=== PATIENT | female | born 1960 | race Hispanic/Latino ===

== ENCOUNTER 2018-09-04 13:10 | Observation (INO) | payer OTHER ==
[~2018-09-04] VITALS: Ht 162.6 cm; Wt 86.1 kg
[2018-09-04 13:45] LABS: BASOPHILS % (AUTO) 0.8 % (0.0-5.0); CREATININE 0.6 mg/dL (0.5-1.5); EOSINOPHILS % (AUTO) 1.2 % (0.0-8.0); HEMATOCRIT 42.1 % (36-48); LYMPHOCYTES % (AUTO) 27.3 % (21.0-51.0); MEAN CORPUSCULAR HEMOGLOBIN 29.1 pg (27.0-33.0); MEAN CORPUSCULAR HGB CONC 33.6 g/dL (32.0-36.0); MEAN CORPUSCULAR VOLUME 86.8 fL (79-99); NEUTROPHILS % (AUTO) 66.7 % (40.0-77.0); PLATELET COUNT (AUTO) 230 K/uL (130-400); POTASSIUM 3.7 mmol/L (3.5-5.1); RED BLOOD CELL COUNT(AUTO) 4.85 MIL/uL (4.00-5.50); RED CELL DISTRIBUTION WIDTH 14.7 % (11.0-15.5)
[2018-09-04] MEDS ORDERED: ASPIRIN 325 MG TABLET ONE (13:49)
[2018-09-04 13:50] LABS: ALBUMIN 3.8 g/dL (3.5-5.0); TOTAL PROTEIN, SERUM 7.9 g/dL (6.0-8.3)
[2018-09-04 13:57] LABS: CREATINE KINASE, TOTAL 62 U/L (21-232); MYOGLOBIN 22 ng/mL (10-92); TROPONIN I < 0.04 ng/mL (0.00-0.06)
[2018-09-04] MEDS ORDERED: ONDANSETRON HCL 4 MG/2 ML VIAL IV PRN (16:00)
[2018-09-04] MEDS ORDERED: HYDRALAZINE HCL 20 MG/ML VIAL IV PRN (16:00)
[2018-09-04] MEDS ORDERED: ZOLPIDEM TARTRATE 5 MG TAB PO PRN (16:00)
[2018-09-04] MEDS ORDERED: MORPHINE SULFATE 2 MG/ML 1ML SYG IV PRN (16:00)
[2018-09-04] MEDS ORDERED: MAG HYDROX/AL HYDROX/SIMETH ES 30 ML SUSP UDCUP PO PRN (16:00)
[2018-09-04 17:23] VITALS: BP 160/80
[2018-09-04] MEDS ORDERED: LEVOFLOXACIN 500 MG/D5W 100 ML 100 ML IV SCH (17:30)
[2018-09-04] MEDS ORDERED: ACETAMINOPHEN 325 MG TAB ONE (18:44)
[2018-09-04] MEDS ORDERED: PANTOPRAZOLE SODIUM 40 MG TABLET.DR PO ONE (18:44)
[2018-09-04] MEDS: SODIUM CHLORIDE 0.9% 1000ML 1,000 ML IV SCH (18:45)
[2018-09-04] MEDS: NITROGLYCERIN 1GM/1 INCH PACKET TD SCH (18:59)
[2018-09-04 19:45] VITALS: BP 131/75
[2018-09-04 20:12] LABS: CREATINE KINASE, TOTAL 47 U/L (21-232); MYOGLOBIN 25 ng/mL (10-92); TROPONIN I < 0.04 ng/mL (0.00-0.06)
[2018-09-04 20:42] LABS: HEMOGLOBIN A1C 7.1 % (4.0-6.0)
[2018-09-04] MEDS ORDERED: LISI-613 PO (20:51)
[2018-09-04] MEDS ORDERED: METF500S7 PO (20:51)
[2018-09-04] MEDS ORDERED: AMLO5TAB7 PO (20:51)
[2018-09-04] MEDS ORDERED: ALBU90AE IH (20:51)
[2018-09-04] MEDS ORDERED: ATOR-2 PO (20:51)
[2018-09-04] MEDS: METOPROLOL TARTRATE 25 MG TAB PO SCH (21:55)
[2018-09-04 23:47] VITALS: BP 114/74
[2018-09-05 00:22] LABS: CREATINE KINASE, TOTAL 43 U/L (21-232); MYOGLOBIN 24 ng/mL (10-92); TROPONIN I < 0.04 ng/mL (0.00-0.06)
[2018-09-05 03:49] VITALS: BP 125/71
[2018-09-05 06:16] LABS: BASOPHILS % (AUTO) 0.6 % (0.0-5.0); EOSINOPHILS % (AUTO) 2.6 % (0.0-8.0); HEMATOCRIT 40.6 % (36-48); LYMPHOCYTES % (AUTO) 32.7 % (21.0-51.0); MEAN CORPUSCULAR HEMOGLOBIN 29.3 pg (27.0-33.0); MEAN CORPUSCULAR HGB CONC 33.5 g/dL (32.0-36.0); MEAN CORPUSCULAR VOLUME 87.6 fL (79-99); MONOCYTES % (AUTO) 6.7 % (3.0-13.0); NEUTROPHILS % (AUTO) 57.4 % (40.0-77.0); PLATELET COUNT (AUTO) 246 K/uL (130-400); RED BLOOD CELL COUNT(AUTO) 4.63 MIL/uL (4.00-5.50); RED CELL DISTRIBUTION WIDTH 14.4 % (11.0-15.5)
[2018-09-05] MEDS: SODIUM CHLORIDE 0.9% 1000ML 1,000 ML IV SCH ×2 (06:38→07:55)
[2018-09-05 06:44] LABS: ALBUMIN 3.2 g/dL (3.5-5.0); BILIRUBIN,TOTAL 0.9 mg/dL (0.2-1.0); CREATININE 0.7 mg/dL (0.5-1.5); POTASSIUM 4.3 mmol/L (3.5-5.1); TOTAL PROTEIN, SERUM 6.8 g/dL (6.0-8.3)
[2018-09-05 06:50] LABS: CREATINE KINASE, TOTAL 45 U/L (21-232); MYOGLOBIN 26 ng/mL (10-92); TROPONIN I < 0.04 ng/mL (0.00-0.06)
[2018-09-05 07:00] VITALS: BP 142/78
[2018-09-05] MEDS: METOPROLOL TARTRATE 25 MG TAB PO SCH (08:01)
[2018-09-05] MEDS: NITROGLYCERIN 1GM/1 INCH PACKET TD SCH ×3 (08:01→15:44)
[2018-09-05] MEDS ORDERED: ENOXAPARIN SODIUM 40 MG/0.4 ML SYRINGE SQ SCH (09:00)
[2018-09-05] MEDS ORDERED: PANTOPRAZOLE 40 MG/VIAL IVP SCH (09:00)
[2018-09-05 11:00] VITALS: BP 144/75
[2018-09-05 16:00] VITALS: BP 141/84
[2018-09-05] MEDS ORDERED: LEVOFLOXACIN 500 MG/D5W 100 ML 100 ML IV SCH (23:00)
== END 2018-09-05 18:38 | disposition home or self-care (01) ==
LOC: EDH 13:10 → EDHIP 15:43 → INTOOBSV 15:43 → 2AH 17:17
PROVIDERS: ADMIT Internal Medicine; ATTEND Internal Medicine
DX: R07.89 Other chest pain (principal); K21.9 Gastro-esophageal reflux disease without esophagitis; I10 Essential (primary) hypertension; E11.9 Type 2 diabetes mellitus without complications; E78.2 Mixed hyperlipidemia; D72.829 Elevated white blood cell count, unspecified; E66.9 Obesity, unspecified; Z90.49 Acquired absence of other specified parts of digestive tract; Z90.710 Acquired absence of both cervix and uterus; Z68.30 Body mass index [BMI] 30.0-30.9, adult
CPT/HCPCS: 36415 ×2; 71045; 80053 ×2; 80061; 82550 ×4; 82948 ×4; 83036; 83874 ×4; 84484 ×4; 85025 ×2; 93005; 93306; 96365; 96372; 99285; C9113; G0378 ×27; J1650; J1956; J7030 ×2

== ENCOUNTER → 2019-11-10 | Outpatient (CLI) | payer OTHER ==
[~2019-11-10] MED LIST: ALBU90AE IH; ALBUTEROL SULFATE 0.083% 2.5 MG/3 ML INH IH ONE; AMLO5TAB9 PO; ATOR-2 PO; LISI-613 PO; METF500S7 PO
== END | disposition home or self-care (01) ==
LOC: RESP 13:18
PROVIDERS: ATTEND Orthopaedic Surgery
DX: J44.9 Chronic obstructive pulmonary disease, unspecified (principal); R06.02 Shortness of breath
CPT/HCPCS: 71046; 94060; 94727; 94729

== ENCOUNTER 2020-05-22 00:09 | Inpatient (IN) | payer OTHER ==
[~2020-05-22] VITALS: Ht 162.6 cm; Wt 82.3 kg
[~2020-05-22 00:09] MED LIST changes: -ALBUTEROL SULFATE 0.083% 2.5 MG/3 ML INH IH ONE
[2020-05-22 00:38] LABS: BASOPHILS % (AUTO) 0.6 % (0.0-5.0); EOSINOPHILS % (AUTO) 0.1 % (0.0-8.0); HEMATOCRIT 41.9 % (36-48); LYMPHOCYTES % (AUTO) 23.9 % (21.0-51.0); MEAN CORPUSCULAR HGB CONC 33.7 g/dL (32.0-36.0); MEAN CORPUSCULAR VOLUME 83.1 fL (79-99); MONOCYTES % (AUTO) 8.9 % (3.0-13.0); NEUTROPHILS % (AUTO) 62.4 % (40.0-77.0); PLATELET COUNT (AUTO) 511 K/uL (130-400); RED BLOOD CELL COUNT(AUTO) 5.04 MIL/uL (4.00-5.50); RED CELL DISTRIBUTION WIDTH 13.7 % (11.0-15.5); WHITE BLOOD COUNT (AUTO) 7.1 K/uL (4.8-10.8)
[2020-05-22 00:48] LABS: CREATININE 0.7 mg/dL (0.5-1.5); POTASSIUM 4.1 mmol/L (3.5-5.1)
[2020-05-22 00:53] LABS: ALBUMIN 2.7 g/dL (3.5-5.0); BILIRUBIN,TOTAL 0.6 mg/dL (0.2-1.0); TOTAL PROTEIN, SERUM 7.7 g/dL (6.0-8.3)
[2020-05-22 00:59] LABS: INR 0.92 (0.85-1.15); PARTIAL THROMBOPLASTIN TIME 29.7 SEC (26.3-35.5)
[2020-05-22] MEDS ORDERED: CEFTRIAXONE SODIUM 1 GM ONE (04:51)
[2020-05-22] MEDS ORDERED: AZITHROMYCIN 500MG+NS 250ML 250 ML IV ONE (04:59)
[2020-05-22] MEDS ORDERED: DEXTROSE 50%-WATER 50 ML DISP.SYRIN IV PRN (05:45)
[2020-05-22] MEDS ORDERED: GLUCAGON 1MG KIT 1 MG ML IM PRN (05:45)
[2020-05-22] MEDS ORDERED: ACETAMINOPHEN 325 MG TAB PO PRN ×2 (05:45)
[2020-05-22] MEDS ORDERED: ONDANSETRON HCL 4 MG/2 ML VIAL IV PRN (05:45)
[2020-05-22] MEDS ORDERED: DIPHENHYDRAMINE HCL 25 MG CAPSULE PO PRN (05:45)
[2020-05-22] MEDS ORDERED: NITROGLYCERIN 0.4 MG SL TAB SL PRN (05:45)
[2020-05-22] MEDS ORDERED: ALBUTEROL INHALER 90MCG/INH IH PRN (06:15)
[2020-05-22 06:19] LABS: LACTATE DEHYDROGENASE 543 U/L (81-234); TRIGLYCERIDES 156 mg/dL (30-200)
[2020-05-22 06:23] LABS: HEMOGLOBIN A1C 8.1 % (4.0-6.0)
[2020-05-22] MEDS ORDERED: IOHEXOL-350 75 ML VIAL IV ONE (06:56)
[2020-05-22] MEDS: PANTOPRAZOLE SODIUM 40 MG TABLET.DR PO SCH (09:00)
[2020-05-22] MEDS ORDERED: ENOXAPARIN SODIUM 60 MG/0.6 ML SQ ONE (09:00)
[2020-05-22] MEDS ORDERED: DEXAMETHASONE 4 MG TAB PO SCH (09:00)
[2020-05-22] MEDS: INSULIN HUMULIN R 100 UNIT/ML 3ML SQ SCH ×4 (09:00→21:00)
[2020-05-22] MEDS ORDERED: ENOXAPARIN SODIUM 30 MG/0.3 ML SQ ONE (09:00)
[2020-05-22] MEDS ORDERED: PANTOPRAZOLE SODIUM 40 MG TABLET.DR ONE (09:01)
[2020-05-22] MEDS ORDERED: DEXAMETHASONE 4 MG TAB ONE (10:36)
--- NOTE | 2020-05-22 12:27 | NUR ---
DCP: HOME SW unable to speak to pt who is in ER covmd unit. SW spoke to daughter Radhika Hidalgo [phone]. Daughter reports that pt's son James Willis lives with the pt. 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 Pt is independent of ADLS, no DME or in home care services. Pt is seen at [employer] for medical care and medicines. Plan is home at mt Addendum: 05/22/20 at 1239 by RODO ACEVES Amended: Links added.
[2020-05-22] MEDS ORDERED: INSULIN HUMULIN R 100 UNIT/ML 3ML ONE (17:54)
[2020-05-22] MEDS: ENOXAPARIN SODIUM 80 MG/0.8 ML SQ SCH (21:00)
[2020-05-23] MEDS ORDERED: ENOXAPARIN SODIUM 100 MG/1 ML SQ ONE (02:33)
[2020-05-23] MEDS: INSULIN HUMULIN R 100 UNIT/ML 3ML SQ SCH ×4 (07:30→21:00)
[2020-05-23 07:41] LABS: HEMATOCRIT 40.2 % (36-48); MEAN CORPUSCULAR HEMOGLOBIN 28.4 pg (27.0-33.0); MEAN CORPUSCULAR HGB CONC 33.8 g/dL (32.0-36.0); MEAN CORPUSCULAR VOLUME 83.9 fL (79-99); PLATELET COUNT (AUTO) 580 K/uL (130-400); RED BLOOD CELL COUNT(AUTO) 4.79 MIL/uL (4.00-5.50); RED CELL DISTRIBUTION WIDTH 13.3 % (11.0-15.5); WHITE BLOOD COUNT (AUTO) 6.4 K/uL (4.8-10.8)
[2020-05-23] MEDS ORDERED: CEFTRIAXONE SODIUM 1 GM ONE (08:05)
[2020-05-23] MEDS ORDERED: DEXAMETHASONE 4 MG TAB ONE (08:05)
[2020-05-23] MEDS ORDERED: PANTOPRAZOLE SODIUM 40 MG TABLET.DR ONE (08:06)
[2020-05-23 08:19] LABS: ALBUMIN 2.5 g/dL (3.5-5.0); BILIRUBIN,TOTAL 0.5 mg/dL (0.2-1.0); CREATININE 0.7 mg/dL (0.5-1.5); CRP QUANTITATIVE 84.4 mg/L (0.00-9.0); MAGNESIUM 2.1 mg/dL (1.80-2.40); POTASSIUM 4.2 mmol/L (3.5-5.1)
[2020-05-23 08:27] LABS: LYMPHOCYTES % (MANUAL) 15 % (22-44); MAN.DIFF COMMENT-IMPRESSION MANUAL DIF; MONOCYTES % (MANUAL) 12 % (2-9); PLATELET MORPHOLOGY COMMENT INCREASED; SEGMENTED NEUTROPHILS % 73 % (40-70)
[2020-05-23] MEDS: PANTOPRAZOLE SODIUM 40 MG TABLET.DR PO SCH (09:00)
[2020-05-23] MEDS: CEFTRIAXONE SODIUM 1 GM IVP SCH (09:00)
[2020-05-23] MEDS: ENOXAPARIN SODIUM 80 MG/0.8 ML SQ SCH ×2 (09:00→21:00)
[2020-05-23] MEDS: AZITHROMYCIN 500MG+NS 250ML 250 ML IV SCH (09:08)
[2020-05-23] MEDS ORDERED: AZITHROMYCIN 500MG+NS 250ML 250 ML IV ONE (11:20)
[2020-05-23] MEDS ORDERED: METHYLPREDNISOLONE SOD SUCC 40MG/ML 1ML IVP SCH (16:45)
[2020-05-24] MEDS: INSULIN HUMULIN R 100 UNIT/ML 3ML SQ SCH ×4 (07:30→21:00)
[2020-05-24] MEDS ORDERED: PANTOPRAZOLE SODIUM 40 MG TABLET.DR ONE (07:41)
[2020-05-24] MEDS ORDERED: CEFTRIAXONE SODIUM 1 GM ONE (07:41)
[2020-05-24] MEDS: CEFTRIAXONE SODIUM 1 GM IVP SCH (09:00)
[2020-05-24] MEDS: AZITHROMYCIN 500MG+NS 250ML 250 ML IV SCH (09:00)
[2020-05-24] MEDS: ENOXAPARIN SODIUM 80 MG/0.8 ML SQ SCH ×2 (09:00→09:11)
[2020-05-24] MEDS: PANTOPRAZOLE SODIUM 40 MG TABLET.DR PO SCH (09:00)
[2020-05-24 10:04] LABS: BASOPHILS % (AUTO) 0.7 % (0.0-5.0); EOSINOPHILS % (AUTO) 1.2 % (0.0-8.0); HEMATOCRIT 39.8 % (36-48); LYMPHOCYTES % (AUTO) 16.9 % (21.0-51.0); MEAN CORPUSCULAR HEMOGLOBIN 28.1 pg (27.0-33.0); MEAN CORPUSCULAR HGB CONC 33.7 g/dL (32.0-36.0); MEAN CORPUSCULAR VOLUME 83.4 fL (79-99); MONOCYTES % (AUTO) 9.8 % (3.0-13.0); NEUTROPHILS % (AUTO) 62.7 % (40.0-77.0); RED BLOOD CELL COUNT(AUTO) 4.77 MIL/uL (4.00-5.50); RED CELL DISTRIBUTION WIDTH 13.4 % (11.0-15.5); WHITE BLOOD COUNT (AUTO) 11.2 K/uL (4.8-10.8)
[2020-05-24] MEDS ORDERED: METHYLPREDNISOLONE SOD SUCC 40MG/ML 1ML ONE ×2 (10:18→15:32)
[2020-05-24 10:20] LABS: PLATELET COUNT (AUTO) 707 K/uL (130-400)
[2020-05-24 10:23] LABS: CREATININE 0.6 mg/dL (0.5-1.5); CRP QUANTITATIVE 39.1 mg/L (0.00-9.0); POTASSIUM 3.9 mmol/L (3.5-5.1)
--- NOTE | 2020-05-24 10:45 | NUR ---
DISPO EXPECTED TO BE TO HOME WHEN RESPONDS TO TREATMENT CM WAITING FOR RECOMMENDATIONS, WEANING O2 AT THIS TIME Addendum: 05/24/20 at 1053 by JUAN FRANCISCO PURVIS RN CM Amended: Links added.
[2020-05-25] MEDS ORDERED: METHYLPREDNISOLONE SOD SUCC 40MG/ML 1ML ONE ×3 (01:25→20:26)
[2020-05-25] MEDS ORDERED: ENOXAPARIN SODIUM 100 MG/1 ML SQ ONE ×2 (04:02→18:10)
[2020-05-25 05:18] LABS: HEMATOCRIT 39.3 % (36-48); MEAN CORPUSCULAR HEMOGLOBIN 28.6 pg (27.0-33.0); MEAN CORPUSCULAR HGB CONC 34.1 g/dL (32.0-36.0); MEAN CORPUSCULAR VOLUME 83.8 fL (79-99); PLATELET COUNT (AUTO) 642 K/uL (130-400); RED BLOOD CELL COUNT(AUTO) 4.69 MIL/uL (4.00-5.50); RED CELL DISTRIBUTION WIDTH 13.5 % (11.0-15.5); WHITE BLOOD COUNT (AUTO) 10.2 K/uL (4.8-10.8)
[2020-05-25 05:34] LABS: CREATININE 0.6 mg/dL (0.5-1.5); CRP QUANTITATIVE 25.6 mg/L (0.00-9.0); POTASSIUM 4.2 mmol/L (3.5-5.1)
[2020-05-25] MEDS: INSULIN HUMULIN R 100 UNIT/ML 3ML SQ SCH ×4 (07:30→21:00)
[2020-05-25] MEDS ORDERED: INSULIN HUMULIN R 100 UNIT/ML 3ML ONE ×3 (08:24→18:12)
[2020-05-25 08:32] LABS: BAND NEUTROPHILS % (MANUAL) 6 % (0-2); EOSINOPHILS % (MANUAL) 1 % (1-6); LYMPHOCYTES % (MANUAL) 13 % (22-44); MAN.DIFF COMMENT-IMPRESSION MANUAL DIFFERENTIAL; MONOCYTES % (MANUAL) 9 % (2-9); PLATELET MORPHOLOGY COMMENT INCREASED; SEGMENTED NEUTROPHILS % 71 % (40-70)
[2020-05-25] MEDS ORDERED: AZITHROMYCIN 500MG+NS 250ML 250 ML IV ONE (08:46)
[2020-05-25] MEDS ORDERED: CEFTRIAXONE SODIUM 1 GM ONE (08:47)
[2020-05-25] MEDS ORDERED: SODIUM CHLORIDE 0.9% 100 ML IV ONE (08:49)
[2020-05-25] MEDS: ENOXAPARIN SODIUM 80 MG/0.8 ML SQ SCH ×2 (09:00→21:00)
[2020-05-25] MEDS: AZITHROMYCIN 500MG+NS 250ML 250 ML IV SCH (09:00)
[2020-05-25] MEDS: CEFTRIAXONE SODIUM 1 GM IVP SCH (09:00)
[2020-05-25] MEDS: PANTOPRAZOLE SODIUM 40 MG TABLET.DR PO SCH (09:00)
[2020-05-25] MEDS ORDERED: PANTOPRAZOLE SODIUM 40 MG TABLET.DR ONE (18:11)
[2020-05-25] MEDS ORDERED: METHYLPREDNISOLONE SOD SUCC 125MG/2ML VIAL ONE (18:11)
[2020-05-25] MEDS: METHYLPREDNISOLONE SOD SUCC 40MG/ML 1ML IVP SCH (21:00)
[2020-05-25 22:40] VITALS: BP 133/80
[2020-05-26] MEDS ORDERED: LISI10TA7 PO (00:12)
[2020-05-26] MEDS ORDERED: AMLO10TA7 PO (00:12)
[2020-05-26 04:00] VITALS: BP 135/80
--- NOTE | 2020-05-26 05:23 | NUR ---
PATIENT ARRIVED TO UNIT AT 2330. AOX4,PLEASANT, AND AMBULATORY. UNIT AND ROOM ORIENTATION GIVEN AND PATIENT EXPRESSED UNDERSTANDING. PT HAS NO COMPLAINTS OF PAIN OR DISCOMFORT AND HAS NO CONCERNS OR COMPLAINTS. PT IS LAYING IN BED COMFORTABLY. HOME MEDICATION REVIEWED WITH PATIENT AND ADMISSION TASKS COMPLETED. CALL LIGHT WITHIN REACH. WILL CONTINUE TO MONITOR
[2020-05-26 05:29] LABS: BASOPHILS % (AUTO) 0.7 % (0.0-5.0); MEAN CORPUSCULAR HEMOGLOBIN 28.5 pg (27.0-33.0); MEAN CORPUSCULAR VOLUME 83.9 fL (79-99); MONOCYTES % (AUTO) 6.4 % (3.0-13.0); NEUTROPHILS % (AUTO) 69.7 % (40.0-77.0); RED BLOOD CELL COUNT(AUTO) 4.77 MIL/uL (4.00-5.50); RED CELL DISTRIBUTION WIDTH 13.2 % (11.0-15.5); WHITE BLOOD COUNT (AUTO) 13.7 K/uL (4.8-10.8)
[2020-05-26 05:45] LABS: CREATININE 0.7 mg/dL (0.5-1.5); CRP QUANTITATIVE 16.6 mg/L (0.00-9.0); POTASSIUM 4.2 mmol/L (3.5-5.1)
[2020-05-26 07:01] LABS: PLATELET COUNT (AUTO) 742 K/uL (130-400)
[2020-05-26] MEDS: INSULIN HUMULIN R 100 UNIT/ML 3ML SQ SCH ×5 (07:30→20:34)
[2020-05-26 08:30] VITALS: BP 130/84
[2020-05-26] MEDS ORDERED: INSULIN GLARGINE 100 UNITS/ML 10 ML VIAL SQ ONE (09:00)
[2020-05-26] MEDS: METHYLPREDNISOLONE SOD SUCC 40MG/ML 1ML IVP SCH (09:04)
[2020-05-26] MEDS: AZITHROMYCIN 500MG+NS 250ML 250 ML IV SCH (09:15)
[2020-05-26] MEDS: PANTOPRAZOLE SODIUM 40 MG TABLET.DR PO SCH (09:15)
[2020-05-26] MEDS: CEFTRIAXONE SODIUM 1 GM IVP SCH (09:15)
[2020-05-26] MEDS: ENOXAPARIN SODIUM 80 MG/0.8 ML SQ SCH (09:19)
[2020-05-26 11:15] VITALS: BP 146/89
[2020-05-26] MEDS ORDERED: DEXAMETHASONE SOD PHOSPHATE 4 MG/ML 1ML VIAL IM SCH (14:00)
[2020-05-26 15:30] VITALS: BP 148/93
[2020-05-26] MEDS ORDERED: SODIUM CHLORIDE 0.9% 500ML 500 ML IV ONE (16:08)
[2020-05-26] MEDS ORDERED: SODIUM CHLORIDE 0.9% 0 ML IV ONE (16:08)
--- NOTE | 2020-05-26 16:41 | NUR ---
Pt does not have blood band although type and cross was drawn yesterday. When asked pt if she had the green band pt states "I had it, but I dont know what happened to it." Lab is here at bedside to redraw. Will give FFP after new blood band.
[2020-05-26] MEDS ORDERED: DEXAMETHASONE SOD PHOSPHATE 4 MG/ML 1ML VIAL IV SCH (17:00)
[2020-05-26 19:00] VITALS: BP 155/90
--- NOTE | 2020-05-26 21:59 | NUR ---
FFP PATIENT IS RESTING COMFORTABLY IN BED. CONSENTS SIGNED FOR FFP. FFP VERIFIED AND GIVEN. VITALS TAKEN AND DOCUMENTED ON TRANFUSION SHEET. PATIENT STATES SHE FEEL OK AND NO INTERACTIONS.
[2020-05-26 23:00] VITALS: BP 142/84
[2020-05-27 03:00] VITALS: BP 154/96
[2020-05-27 05:52] LABS: BASOPHILS % (AUTO) 0.6 % (0.0-5.0); HEMATOCRIT 37.5 % (36-48); LYMPHOCYTES % (AUTO) 12.2 % (21.0-51.0); MEAN CORPUSCULAR HEMOGLOBIN 28.2 pg (27.0-33.0); MEAN CORPUSCULAR HGB CONC 33.9 g/dL (32.0-36.0); MEAN CORPUSCULAR VOLUME 83.1 fL (79-99); MONOCYTES % (AUTO) 8.4 % (3.0-13.0); NEUTROPHILS % (AUTO) 66.3 % (40.0-77.0); RED BLOOD CELL COUNT(AUTO) 4.51 MIL/uL (4.00-5.50); RED CELL DISTRIBUTION WIDTH 13.4 % (11.0-15.5); WHITE BLOOD COUNT (AUTO) 17.4 K/uL (4.8-10.8)
[2020-05-27 05:54] LABS: PLATELET COUNT (AUTO) 714 K/uL (130-400)
[2020-05-27 06:04] LABS: ALBUMIN 2.9 g/dL (3.5-5.0); BILIRUBIN,TOTAL 0.5 mg/dL (0.2-1.0); CREATININE 0.7 mg/dL (0.5-1.5); CRP QUANTITATIVE 7.4 mg/L (0.00-9.0); POTASSIUM 3.7 mmol/L (3.5-5.1); TOTAL PROTEIN, SERUM 7.1 g/dL (6.0-8.3)
[2020-05-27] MEDS: INSULIN HUMULIN R 100 UNIT/ML 3ML SQ SCH ×4 (06:35→21:03)
--- NOTE | 2020-05-27 06:46 | NUR ---
END OF SHIFT PATIUENT RESTING IN BED COMFORTABLY WEARING 2L OF OXYGEN VIA NASAL CANNULA. NO NEDS OR CONCERNS AT THIS TIME
[2020-05-27 08:00] VITALS: BP 141/88
[2020-05-27] MEDS: ENOXAPARIN SODIUM 40 MG/0.4 ML SYRINGE SQ SCH (08:47)
[2020-05-27] MEDS: PANTOPRAZOLE SODIUM 40 MG TABLET.DR PO SCH (08:48)
[2020-05-27 12:00] VITALS: BP 148/89
[2020-05-27 15:30] VITALS: BP 149/85
[2020-05-27] MEDS ORDERED: CEFTRIAXONE SODIUM 1 GM IVP SCH (17:45)
[2020-05-27] MEDS ORDERED: DEXAMETHASONE SOD PHOSPHATE 4 MG/ML 1ML VIAL IVP SCH (18:50)
[2020-05-27 19:00] VITALS: BP 137/90
[2020-05-27] MEDS ORDERED: DEXAMETHASONE SOD PHOSPHATE 4 MG/ML 1ML VIAL ONE (20:30)
[2020-05-27] MEDS: DOXYCYCLINE HYCLATE 100 MG TABLET PO SCH (21:04)
[2020-05-27 23:00] VITALS: BP 137/87
[2020-05-28 03:00] VITALS: BP 149/94
[2020-05-28 05:23] LABS: HEMATOCRIT 39.1 % (36-48); MEAN CORPUSCULAR HEMOGLOBIN 28.9 pg (27.0-33.0); MEAN CORPUSCULAR HGB CONC 34.3 g/dL (32.0-36.0); MEAN CORPUSCULAR VOLUME 84.3 fL (79-99); PLATELET COUNT (AUTO) 626 K/uL (130-400); RED BLOOD CELL COUNT(AUTO) 4.64 MIL/uL (4.00-5.50); RED CELL DISTRIBUTION WIDTH 13.6 % (11.0-15.5); WHITE BLOOD COUNT (AUTO) 13.5 K/uL (4.8-10.8)
[2020-05-28 05:34] LABS: ALBUMIN 2.8 g/dL (3.5-5.0); BILIRUBIN,TOTAL 0.4 mg/dL (0.2-1.0); CREATININE 0.8 mg/dL (0.5-1.5); CRP QUANTITATIVE 6.4 mg/L (0.00-9.0); POTASSIUM 4.3 mmol/L (3.5-5.1); TOTAL PROTEIN, SERUM 6.8 g/dL (6.0-8.3)
[2020-05-28 05:53] LABS: BAND NEUTROPHILS % (MANUAL) 5 % (0-2); EOSINOPHILS % (MANUAL) 1 % (1-6); LYMPHOCYTES % (MANUAL) 16 % (22-44); MONOCYTES % (MANUAL) 9 % (2-9); REACTIVE LYMPHOCYTES 3 % (0-0); SEGMENTED NEUTROPHILS % 66 % (40-70)
[2020-05-28 05:54] LABS: MAN.DIFF COMMENT-IMPRESSION MANUAL DIFFERENTIAL; PLATELET MORPHOLOGY COMMENT INCREASED
[2020-05-28] MEDS: INSULIN HUMULIN R 100 UNIT/ML 3ML SQ SCH ×4 (06:46→20:50)
--- NOTE | 2020-05-28 07:50 | NUR ---
RECEIVED PATIENT LAYING ON BED IN A SEMI-GHOSH'S POSITION ON ROOM AIR AND IS A LITTLE SHORT OF BREATH. SHE SAID THAT SHE HAD JUST GONE TO THE RESTROOM AND FORGOT TO PUT HER O2 BACK ON. ENCOURAGED CONTINUED USE OF O2 AT 2L. FULL ASSESSMENT DONE. MAINTAINED ENHANCED ISOLATION. CALL LIGHT WITHIN REACH.
[2020-05-28 08:00] VITALS: BP 143/89
[2020-05-28] MEDS: CEFTRIAXONE SODIUM 1 GM IVP SCH ×2 (08:17→20:56)
[2020-05-28] MEDS: ENOXAPARIN SODIUM 40 MG/0.4 ML SYRINGE SQ SCH (08:17)
[2020-05-28] MEDS: PANTOPRAZOLE SODIUM 40 MG TABLET.DR PO SCH (08:17)
[2020-05-28] MEDS: DOXYCYCLINE HYCLATE 100 MG TABLET PO SCH ×2 (08:18→20:56)
[2020-05-28 12:00] VITALS: BP 141/87
[2020-05-28 15:30] VITALS: BP 140/94
--- NOTE | 2020-05-28 16:52 | NUR ---
DR. SMITH IS MAKING HIS ROUNDS OUTSIDE PATIENT'S ROOM. INFORMED MD THAT PATIENT IS DOWN TO 2L O2 PER NC. OCCASIONALLY TAKES OFF O2 BUT GETS SOB WHEN AMBULATING TO RESTROOM. MD RECOMMENDS TO D/C ANTIBIOTICS, MAY DC IF O2 SAT IS >92% ON ROOM AIR. NO NEED TO DO 6 MINUTE WALK TEST. MUST D/C ON ANTICOAGULATION FOR 14 DAYS. F/U IN A FEW DAYS.
[2020-05-28 19:32] VITALS: BP_SYST 122; BP_SYST 162; BP_DIAS 71; BP_DIAS 91
[2020-05-28 23:01] VITALS: BP 148/91
[2020-05-29 03:00] VITALS: BP_SYST 144; BP_SYST 149; BP_DIAS 70; BP_DIAS 93
[2020-05-29] MEDS: INSULIN HUMULIN R 100 UNIT/ML 3ML SQ SCH ×4 (05:53→20:28)
[2020-05-29 07:51] LABS: HEMATOCRIT 38.4 % (36-48); MEAN CORPUSCULAR HEMOGLOBIN 28.5 pg (27.0-33.0); MEAN CORPUSCULAR HGB CONC 33.6 g/dL (32.0-36.0); PLATELET COUNT (AUTO) 536 K/uL (130-400); RED BLOOD CELL COUNT(AUTO) 4.52 MIL/uL (4.00-5.50); WHITE BLOOD COUNT (AUTO) 11.7 K/uL (4.8-10.8)
[2020-05-29 08:00] VITALS: BP 131/84
[2020-05-29 08:08] LABS: ALBUMIN 2.7 g/dL (3.5-5.0); BILIRUBIN,TOTAL 0.5 mg/dL (0.2-1.0); CREATININE 0.7 mg/dL (0.5-1.5); CRP QUANTITATIVE 3.8 mg/L (0.00-9.0); POTASSIUM 3.7 mmol/L (3.5-5.1); TOTAL PROTEIN, SERUM 6.2 g/dL (6.0-8.3)
[2020-05-29] MEDS: PANTOPRAZOLE SODIUM 40 MG TABLET.DR PO SCH (08:35)
[2020-05-29] MEDS: DOXYCYCLINE HYCLATE 100 MG TABLET PO SCH (08:35)
[2020-05-29 08:36] LABS: BAND NEUTROPHILS % (MANUAL) 1 % (0-2); EOSINOPHILS % (MANUAL) 2 % (1-6); LYMPHOCYTES % (MANUAL) 24 % (22-44); MAN.DIFF COMMENT-IMPRESSION MANUAL DIFFERENTIAL; MONOCYTES % (MANUAL) 9 % (2-9); SEGMENTED NEUTROPHILS % 64 % (40-70)
[2020-05-29 08:37] LABS: PLATELET MORPHOLOGY COMMENT INCREASED
[2020-05-29] MEDS: ENOXAPARIN SODIUM 40 MG/0.4 ML SYRINGE SQ SCH (08:37)
[2020-05-29] MEDS: CEFTRIAXONE SODIUM 1 GM IVP SCH (08:37)
[2020-05-29 11:30] VITALS: BP 137/87
--- NOTE | 2020-05-29 13:30 | NUR ---
MD UPDATE DR BURR UPDATED ON PT'S CURRENT STATUS & PLAN OF CARE VIA TELEPHONE. ORDERS RECEIVED & ENTERED. DR BURR PLANS TO CALL PT'S RM & SPEAK W/PT; PT INFORMED.
[2020-05-29 15:30] VITALS: BP 140/72
[2020-05-29 19:32] VITALS: BP 137/85
[2020-05-29 23:00] VITALS: BP 119/72
[2020-05-30 03:01] VITALS: BP 138/88
[2020-05-30 05:00] LABS: BASOPHILS % (AUTO) 0.5 % (0.0-5.0); EOSINOPHILS % (AUTO) 1.5 % (0.0-8.0); HEMATOCRIT 39.2 % (36-48); LYMPHOCYTES % (AUTO) 29.6 % (21.0-51.0); MEAN CORPUSCULAR HGB CONC 33.9 g/dL (32.0-36.0); MEAN CORPUSCULAR VOLUME 85.4 fL (79-99); MONOCYTES % (AUTO) 8.6 % (3.0-13.0); PLATELET COUNT (AUTO) 471 K/uL (130-400); RED BLOOD CELL COUNT(AUTO) 4.59 MIL/uL (4.00-5.50); RED CELL DISTRIBUTION WIDTH 14.1 % (11.0-15.5); WHITE BLOOD COUNT (AUTO) 10.9 K/uL (4.8-10.8)
[2020-05-30 05:12] LABS: ALBUMIN 2.5 g/dL (3.5-5.0); BILIRUBIN,TOTAL 0.5 mg/dL (0.2-1.0); CREATININE 0.8 mg/dL (0.5-1.5); CRP QUANTITATIVE 3.4 mg/L (0.00-9.0); POTASSIUM 4.1 mmol/L (3.5-5.1); TOTAL PROTEIN, SERUM 6.4 g/dL (6.0-8.3)
[2020-05-30] MEDS: INSULIN HUMULIN R 100 UNIT/ML 3ML SQ SCH ×4 (06:25→20:14)
[2020-05-30 08:00] VITALS: BP 127/78
--- NOTE | 2020-05-30 08:15 | NUR ---
AM ASSESSMENT PT SITTING IN CHAIR, WATCHING TV. A/O X 3. SOB ON EXERTION. NO DISTRESS NOTED. O2 NC @ 1.5L. O2 DECREASED TO NC @ 1L @ THIS TIME. DENIES CHEST PAIN OR DISCOMFORT. DENIES PALPITATIONS. TELE: SR. DENIES N/V AND/OR DIARRHEA. UP AD RUDOLPH. INSTRUCTED TO CALL FOR ASSISTANCE. CALL FREDERICK W/IN REACH.
[2020-05-30] MEDS: PANTOPRAZOLE SODIUM 40 MG TABLET.DR PO SCH (08:59)
[2020-05-30] MEDS: DEXAMETHASONE SOD PHOSPHATE 4 MG/ML 1ML VIAL IVP SCH (09:00)
[2020-05-30] MEDS: ENOXAPARIN SODIUM 40 MG/0.4 ML SYRINGE SQ SCH (09:00)
[2020-05-30 11:30] VITALS: BP 121/80
[2020-05-30 15:30] VITALS: BP 159/96
[2020-05-30 19:02] VITALS: BP 157/96
[2020-05-30 19:25] VITALS: BP 131/82
[2020-05-31 00:32] VITALS: BP 131/82
[2020-05-31 03:02] VITALS: BP 149/92
[2020-05-31 05:29] LABS: BASOPHILS % (AUTO) 0.3 % (0.0-5.0); EOSINOPHILS % (AUTO) 0.1 % (0.0-8.0); HEMATOCRIT 39.7 % (36-48); LYMPHOCYTES % (AUTO) 14.2 % (21.0-51.0); MEAN CORPUSCULAR HEMOGLOBIN 28.3 pg (27.0-33.0); MEAN CORPUSCULAR HGB CONC 33.2 g/dL (32.0-36.0); MONOCYTES % (AUTO) 8.2 % (3.0-13.0); NEUTROPHILS % (AUTO) 73.8 % (40.0-77.0); PLATELET COUNT (AUTO) 445 K/uL (130-400); RED BLOOD CELL COUNT(AUTO) 4.67 MIL/uL (4.00-5.50); RED CELL DISTRIBUTION WIDTH 14.1 % (11.0-15.5); WHITE BLOOD COUNT (AUTO) 11.8 K/uL (4.8-10.8)
[2020-05-31 05:45] LABS: ALBUMIN 2.8 g/dL (3.5-5.0); BILIRUBIN,TOTAL 0.6 mg/dL (0.2-1.0); CREATININE 0.7 mg/dL (0.5-1.5); CRP QUANTITATIVE 11.4 mg/L (0.00-9.0); POTASSIUM 4.5 mmol/L (3.5-5.1); TOTAL PROTEIN, SERUM 6.7 g/dL (6.0-8.3)
[2020-05-31] MEDS: INSULIN HUMULIN R 100 UNIT/ML 3ML SQ SCH ×3 (06:28→16:30)
[2020-05-31 08:00] VITALS: BP 155/99
[2020-05-31] MEDS: ENOXAPARIN SODIUM 40 MG/0.4 ML SYRINGE SQ SCH (09:02)
[2020-05-31] MEDS: PANTOPRAZOLE SODIUM 40 MG TABLET.DR PO SCH (09:02)
[2020-05-31] MEDS: DEXAMETHASONE SOD PHOSPHATE 4 MG/ML 1ML VIAL IVP SCH (09:03)
[2020-05-31] MEDS ORDERED: LISINOPRIL 10 MG TABLET PO SCH (09:45)
[2020-05-31] MEDS ORDERED: GLIPIZIDE XL 2.5MG TAB PO SCH (09:45)
[2020-05-31] MEDS ORDERED: AMLODIPINE BESYLATE 5 MG TAB PO SCH (09:45)
[2020-05-31] MEDS ORDERED: NON-FORMULARY MEDICATION 1 EACH (Albuterol Sulfate (Proair Respiclick) 2 PUFF) IH PRN (09:45)
--- NOTE | 2020-05-31 10:51 | NUR ---
RDSCREEN - LOS X 9 Pt admitted with Sepsis, COVID PNA. Upon phone call, Pt reports tolerating 75gm CCD, Heart healthy Diet order with no report of GI distress. Pt with good appetite. Pt reports avoiding added sugars and processed carbohydrates. Pt denies need for nutrition supplementation. Likes cranberry juice. Pt is s/p Plasma Tx. Pt reports desireable weight loss. Recommend continue current diet order. RD to continue to monitor. Please notify as additional nutrition concerns arise.
[2020-05-31 12:00] VITALS: BP 153/83
[2020-05-31] MEDS ORDERED: APIX2.5T PO (14:08)
[2020-05-31] MEDS ORDERED: GLIP2.5T PO (14:08)
[2020-05-31] MEDS ORDERED: METF850T PO (14:08)
[2020-05-31] MEDS ORDERED: DEXA6TAB PO (14:08)
[2020-05-31 16:00] VITALS: BP 129/91
[2020-05-31] MEDS ORDERED: METFORMIN HCL 850 MG TABLET PO SCH (17:00)
[2020-05-31] MEDS ORDERED: ATORVASTATIN CALCIUM 40 MG TABLET PO SCH (21:00)
[2020-06-01] MEDS ORDERED: GLIPIZIDE XL 2.5MG TAB PO SCH (08:00)
[2020-06-01] MEDS ORDERED: LISINOPRIL 10 MG TABLET PO SCH (09:00)
[2020-06-01] MEDS ORDERED: AMLODIPINE BESYLATE 5 MG TAB PO SCH (09:00)
== END 2020-05-31 17:30 | disposition home or self-care (01) | DRG 177 ==
LOC: EDH 00:09 → EDHIP 04:35 → 2AH 05-25 22:03
PROVIDERS: ADMIT Internal Medicine; ATTEND Internal Medicine
PROC: 30233K1 Transfusion of Nonautologous Frozen Plasma into Peripheral Vein, Percutaneous Approach (ICD-10-PCS; principal; 2020-05-26)
DX: U07.1 COVID-19 (principal); J12.89 Other viral pneumonia; J96.01 Acute respiratory failure with hypoxia; J44.0 Chronic obstructive pulmonary disease with (acute) lower respiratory infection; E87.1 Hypo-osmolality and hyponatremia; E11.9 Type 2 diabetes mellitus without complications; E66.9 Obesity, unspecified; E78.5 Hyperlipidemia, unspecified; I10 Essential (primary) hypertension; K21.9 Gastro-esophageal reflux disease without esophagitis; Z68.31 Body mass index [BMI] 31.0-31.9, adult; Z79.82 Long term (current) use of aspirin; Z79.84 Long term (current) use of oral hypoglycemic drugs; Z90.49 Acquired absence of other specified parts of digestive tract; Z98.51 Tubal ligation status
CPT/HCPCS: 36415; 36430; 71045; 71275; 80048; 80053; 82550; 82728; 82948; 83036; 83605; 83615; 83735; 84145; 84478; 84484; 85025; 85378; 85384; 85610; 85730; 86140; 86850; 86900; 86901; 86927; 87040; 93005; 93970; 94760; 99291; G0378; J0456; J0696; J1100; J1650; J1815; J2920; J2930; J7040; J7050; J8540; P9017; Q9967

== ENCOUNTER → 2021-02-28 | Outpatient (CLI) | payer OTHER ==
[~2021-02-28] MED LIST changes: +AMLO-258 PO; -AMLO5TAB9 PO; +APIX2.5T PO; +DEXA6TAB PO; +GLIP2.5T PO; -LISI-613 PO; +LISI10TA24 PO; -METF500S7 PO; +METF850T PO
== END | disposition home or self-care (01) ==
LOC: RAH 10:49
PROVIDERS: ATTEND Family Medicine
DX: R13.10 Dysphagia, unspecified (principal)
CPT/HCPCS: 74230; 92611